=== PATIENT | male | born 1995 | race Two or more races ===

== ENCOUNTER 2017-06-04 11:21 | Emergency (ER) | payer OTHER ==
[~2017-06-04] VITALS: Ht 175.3 cm; Wt 114.3 kg
[2017-06-04 11:22] VITALS: BP 118/75
== END 2017-06-04 13:28 | disposition home or self-care (01) ==
LOC: ED 13:22
DX: S16.1XXA Strain of muscle, fascia and tendon at neck level, initial encounter (principal); S29.012A Strain of muscle and tendon of back wall of thorax, initial encounter; V49.49XA Driver injured in collision with other motor vehicles in traffic accident, initial encounter; Y93.89 Activity, other specified; Y99.8 Other external cause status; Y92.488 Other paved roadways as the place of occurrence of the external cause
CPT/HCPCS: 72050; 72072; 99284

== ENCOUNTER 2017-07-18 23:08 | Emergency (ER) | payer OTHER ==
[~2017-07-18] VITALS: Ht 175.3 cm; Wt 119.2 kg
[2017-07-19] MEDS ORDERED: DIPHENHYDRAMINE 50 MG/ML, 1ML IVPush ONE
[2017-07-19] MEDS ORDERED: SODIUM CHLORIDE 0.9% 1,000ML IVBOLUS ONE
[2017-07-19] MEDS ORDERED: METOCLOPRAMIDE 5 MG/ML, 2ML IVPush ONE
[2017-07-19] MEDS ORDERED: DIPHENHYDRAMINE 50 MG/ML, 1ML ONE (00:14)
[2017-07-19] MEDS ORDERED: METOCLOPRAMIDE 5 MG/ML, 2ML ONE (00:14)
[2017-07-19 00:20] LABS: BASOPHILS # (AUTO) 0.04 x10^3/uL (0-0.1); BASOPHILS % (AUTO) 1 % (0-1); EOSINOPHILS # (AUTO) 0.08 x10^3/uL (0-0.4); EOSINOPHILS % (AUTO) 1 % (1-7); LYMPHOCYTES # (AUTO) 2.26 x10^3/uL (1-3.4); LYMPHOCYTES % (AUTO) 31 % (22-44); MD NO; MEAN CORPUSCULAR HGB CONC 34.1 g/dL (33.2-36.2); MEAN CORPUSCULAR VOLUME 85.1 fL (81-97); MEAN PLATELET VOLUME 8.3 fL (7.4-10.4); MONOCYTES # (AUTO) 0.49 x10^3/uL (0.2-0.8); MONOCYTES % (AUTO) 7 % (2-9); NEUTROPHILS # (AUTO) 4.37 x10^3/uL (1.8-6.8); NEUTROPHILS % (AUTO) 60 % (42-75); PLATELET COUNT 319 x10^3/uL (130-400); RED BLOOD COUNT 5.32 x10^6/uL (4.38-5.82); RED CELL DISTRIBUTION WIDTH 13.6 % (9.4-14.8)
[2017-07-19 00:30] LABS: ALBUMIN 3.7 g/dL (3.4-5.0); ANION GAP 7 mmol/L (5-15); CALCIUM 8.6 mg/dL (8.5-10.1); CHLORIDE 109 mmol/L (98-107); CREATININE 0.77 mg/dL (0.7-1.3)
[2017-07-19 01:30] VITALS: BP 132/74
== END 2017-07-19 01:32 | disposition home or self-care (01) ==
LOC: ED 23:59
DX: G43.109 Migraine with aura, not intractable, without status migrainosus (principal)
CPT/HCPCS: 36415; 70450; 80048; 82040; 85025; 96361; 96374; 96375; 99285; J1200; J2765; J7030

== ENCOUNTER 2018-10-12 22:47 | Emergency (ER) | payer OTHER ==
[~2018-10-12] VITALS: Ht 172.7 cm; Wt 115.2 kg
[2018-10-12 22:51] VITALS: BP 115/71
[2018-10-12] MEDS ORDERED: ACETAMINOPHEN 500 MG TABLET PO ONE (23:30)
[2018-10-12] MEDS ORDERED: IBUPROFEN 800 MG TABLET PO ONE (23:30)
--- NOTE | 2018-10-12 23:49 | NUR ---
MEDICATION REQUESTED FROM PHARMACY. PT TO IMAGING AT THIS TIME.
[2018-10-12] MEDS ORDERED: IBUPROFEN 800 MG TABLET ONE (23:50)
[2018-10-12] MEDS ORDERED: ACETAMINOPHEN 500 MG TABLET ONE (23:51)
--- NOTE | 2018-10-12 23:55 | NUR ---
PT MEDICATED PER EMAR FOR PAIN/FEVER
[2018-10-13] MEDS ORDERED: AZITHROMYCIN 500 MG TABLET PO ONE (00:30)
[2018-10-13] MEDS ORDERED: CEFTRIAXONE 250 MG IM ONE (00:30)
[2018-10-13] MEDS ORDERED: AZITHROMYCIN 500 MG TABLET ONE (00:34)
[2018-10-13] MEDS ORDERED: CEFTRIAXONE 250 MG ONE (00:34)
--- NOTE | 2018-10-13 01:00 | NUR ---
NO ABX RXN NOTED. DC EDUCATION PROVIDED, PT DEMONSTRATES UNDERSTANDING. PT AMBULATED STEADILY TO DC WITH RN
== END 2018-10-13 01:03 | disposition home or self-care (01) ==
LOC: ED 23:59
DX: J02.9 Acute pharyngitis, unspecified (principal); R50.9 Fever, unspecified
CPT/HCPCS: 36415; 71046; 86308; 87081; 87591; 87880; 96372; 99284; J0696